=== PATIENT | female | born 1975 | race Caucasian/White ===

== ENCOUNTER 2018-05-15 20:27 | Emergency (ER) | payer BC ==
[2018-05-15 20:53] VITALS: BP 139/87
[2018-05-15] MEDS ORDERED: DOXYcycline CAP(*) 100 MG PO ONE (21:28)
--- NOTE | 2018-05-15 22:01 | UC ---
Irina Barreto Emily, scribed for Michael Ramirez MD on 05/15/18 at 2114 . Skin Complaint HPI - HPI Summary HPI Summary: This patient is a 43 year old F presenting to [facility] with a chief complaint of tick bite to upper, right back that occurred yesterday. The patient rates the pain 2/10 in severity. Symptoms aggravated by nothing. Symptoms alleviated by nothing. Pt reports that her son removed half of the tick. Allergies reviewed. Medications reviewed. - History of Current Complaint Chief Complaint: UCSkin Time Seen by Provider: 05/15/18 21:08 Stated Complaint: TICK BITE Hx Obtained From: Patient Hx Last Menstrual Period: 04/23/18 ?: No Onset/Duration: Sudden Onset, Lasting Days, Still Present Skin Exposure Onset/Duration: Days Ago Timing: Constant Onset Severity: Mild Current Severity: Mild Pain Intensity: 2 Pain Scale Used: 0-10 Numeric Location: Other - Upper right back Aggravating Factor(s): Nothing Alleviating Factor(s): Nothing Related History: Insect Bite/Sting - Allergy/Home Medications Allergies/Adverse Reactions: Allergies Allergy/AdvReac Type Severity Reaction Status Date / Time Penicillins Allergy Intermediate Hives Verified 05/15/18 20:53 Review of Systems Skin: Other - Positive tick bite Cardiovascular: Other - Negative CP All Other Systems Reviewed And Are Negative: Yes PMH/Surg Hx/FS Hx/Imm Hx Previously Healthy: Yes Endocrine History: Other Other Endocrine History: Negative diabetes Cardiovascular History: Other Other Cardiovascular History: Negative HTN - Surgical History Surgical History: None Surgery Procedure, Year, and Place: right elbow 1999 - Family History Known Family History: Negative: Seizure Disorder - Social History Occupation: Employed Full-time Lives: With Family Alcohol Use: Occasionally Substance Use Type: None Smoking Status (MU): Former Smoker When Did the Patient Quit Smoking/Using Tobacco: 20 years Physical Exam - Summary Physical Exam Summary: General: well-appearing, no pain distress Skin: warm, color reflects adequate perfusion, dry. R lateral chest there is a head of a tick embedded in her skin. 1 cm surrounding erythema. No bullseye rash. Head: normal Eyes: EOMI, MIKA ENT: normal Neck: supple, nontender Respiratory: CTA, breath sounds present Cardiovascular: RRR Abdomen: soft, nontender Bowel: present Musculoskeletal: normal, strength/ROM intact Neurological: sensory/motor intact, A&O x3 Psychological: affect/mood appropriate Triage Information Reviewed: Yes Vital Signs: Initial Vital Signs Temp 99 F 05/15/18 20:48 Pulse 78 05/15/18 20:48 Resp 20 05/15/18 20:48 BP 139/87 05/15/18 20:48 Pulse Ox 100 05/15/18 20:48 Vital Signs Reviewed: Yes Course/Dx - Course Course Of Treatment: USING BAYONET FORCEPTS, I WAS ABLE TO REMOVE MOST OF THE REMAINING TICK HEAD. DOXYCYCLINE 200MG PO ONCE GIVEN HERE IN CLINIC. PATIENT WILL START 14-21 DAY DOXY RX IF BULLS EYE RASH APPEARS OR BECOMES ILL WITH LYME SX. - Diagnoses Provider Diagnoses: TICK BITE Discharge - Sign-Out/Discharge Documenting (check all that apply): Discharge/Admit/Transfer - Discharge Plan Condition: Stable Disposition: HOME Prescriptions: DOXYcycline CAP(*) [DOXYcycline 100MG CAP(*)] 100 mg PO BID #42 cap Patient Education Materials: Tick Bite (ED) Referrals: [facility] [place] [facility] [Outside] Additional Instructions: FOLLOW UP WITH YOUR DOCTOR. GET RECHECKED FOR ANY WORSENING OF YOUR CONDITION OR QUESTIONS OR CONCERNS. - Billing Disposition and Condition Condition: STABLE Disposition: Home The documentation as recorded by the Irina johns Emily accurately reflects the service I personally performed and the decisions made by me, Michael Ramirez MD.
== END 2018-05-15 21:40 | disposition home or self-care (01) ==
LOC: UCEAST 20:27
DX: S20.461A Insect bite (nonvenomous) of right back wall of thorax, initial encounter (principal); W57.XXXA Bitten or stung by nonvenomous insect and other nonvenomous arthropods, initial encounter; Z87.891 Personal history of nicotine dependence; Y92.9 Unspecified place or not applicable; Z88.0 Allergy status to penicillin
CPT/HCPCS: 99212; A9270-GY; G0463